=== PATIENT | male | born 1995 | race African-American/Black ===

== ENCOUNTER 2017-08-23 03:28 | Emergency (ER) | payer BC, MEDICAID ==
[~2017-08-23] VITALS: Ht 177.8 cm; Wt 72.0 kg
[2017-08-23 03:29] VITALS: BP 122/59; PULSE 98; RESP 16; TEMP 100.2; O2SAT 98
[2017-08-23] MEDS ORDERED: ZITHTAB PO (04:33)
--- NOTE | 2017-08-23 04:37 | PD ---
HPI Chief Complaint: ENT Complaint Time Seen by Provider: 04:19 Travel History International Travel<30 days: No Contact w/Intl Traveler<30days: No Traveled to known affect area: No History of Present Illness HPI 21-year-old black male presents to emergency Department with complaints of sore throat and fever. He states that is been sick now for 5 days. He has had progressive sore throat, headache, sore throat, congestion, and general malaise. He denies any ear pain, cough, shortness of breath, wheezing, nausea, vomiting, abdominal pain or urinary symptoms. Symptoms are moderate to severe. Worse with swallowing. No alleviating factors. PFSH Past Medical History Asthma: Yes Cardiovascular Problems: Yes Developmental Delay: No Diminished Hearing: No Gastrointestinal Disorders: No Genitourinary: No Musculoskeletal: No Neurologic: No Respiratory: No Immunizations Current: Yes Sickle Cell Disease: No Past Surgical History Cardiac Surgery: Yes ( ASD REPAIR; MITRAL VALVE INSUFFICIENCY) Other Surgery: Yes Social History Alcohol Use: No Tobacco Use: No Substance Use: No Allergies-Medications (Allergen,Severity, Reaction): Coded Allergies: amoxicillin (Unverified Allergy, Severe, Rash, 08/23/17) Reported Meds & Prescriptions Reported Meds & Active Scripts Active Zithromax Z-Rodolfo (Azithromycin) 250 Mg Dspk 250 Mg PO DIRECTED 500 MG (2 tabs) day 1, then 1 tab days 2-5. Review of Systems Except as stated in HPI: all other systems reviewed are Neg Physical Exam Narrative GENERAL: Well-developed, well-nourished in no acute distress. Nontoxic appearing. HEAD: Normocephalic, atraumatic. EYES: Pupils equal round and reactive. Extraocular motions intact. No scleral icterus. No injection or drainage. ENT: TMs clear without erythema. The external auditory canals clear. Nose: clear . Posterior pharynx is erythematous with edematous exudative tonsils. Mucous membranes are moist.. Uvula midline. Airway patent. NECK: Trachea midline.Supple, nontender, moves head freely. No central bony tenderness or spasm. CARDIOVASCULAR: Regular rate and rhythm without murmurs, gallops, or rubs. RESPIRATORY: Clear to auscultation. Breath sounds equal bilaterally. No wheezes , rales, or rhonchi. GASTROINTESTINAL: Abdomen soft, non-tender, nondistended. No hepato-splenomegaly , or palpable masses. No guarding. EXTREMITIES: No clubbing, cyanosis, or edema. No joint tenderness, effusion, or edema noted. BACK: Nontender without deformity or crepitance. No flank tenderness. Data Data Last Documented VS Vital Signs Date Time Temp Pulse Resp B/P (MAP) Pulse Ox O2 Delivery O2 Flow Rate FiO2 08/23/17 03:29 100.2 98 16 122/59 (80) 98 Room Air Orders Orders Azithromycin (Zithromax) (08/23/17 04:45) Dexamethasone (Decadron) (08/23/17 04:45) Dexamethasone (Decadron) (08/23/17 04:45) Ed Discharge Order (08/23/17 04:34) MDM Medical Decision Making Medical Screen Exam Complete: Yes Emergency Medical Condition: Yes Medical Record Reviewed: Yes Differential Diagnosis MDM: High Differential diagnoses: Strep throat, viral pharyngitis, mono, peritonsillar abscess, retropharyngeal abscess, Donnie's angina Narrative Course Patient is given Zithromax 500 mg by mouth and Decadron 10 mg by mouth. This is acute exudative tonsillitis Sepsis Criteria SIRS Criteria (2 or more): Temp > 100.9 or < 96.8, Heart rate over 90 Sepsis Criteria (SIRS+source): Infect source susp/known Criteria Outcome: Meets SIRS criteria Diagnosis Primary Impression: acute exudative tonsillitis Patient Instructions: General Instructions Additional Instructions: Rest. Force fluids. Saltwater gargles. Tylenol and Advil. Chloraseptic [place] Cepastat lozenge. Zithromax. Follow-up with a primary care doctor in one week. Return to the ER if any problems. Med/Other Pt SpecificInfo: Prescription(s) given Scripts Azithromycin (Zithromax Z-Rodolfo) 250 Mg Dspk 250 MG PO DIRECTED for Infection, #1 DSPK 0 Refills 500 MG (2 tabs) day 1, then 1 tab days 2-5. Prov: Kenroy Dorsey MD 08/23/17 Disposition: 01 DISCHARGE HOME Condition: Stable Jonatan Gloria Aug 23, 2017 04:37
[2017-08-23] MEDS ORDERED: DEXAMETHASONE 4 MG TAB PO ONE (04:45)
[2017-08-23] MEDS ORDERED: DEXAMETHASONE 6 MG TAB PO ONE (04:45)
[2017-08-23] MEDS ORDERED: AZITHROMYCIN 250 MG TAB PO ONE (04:45)
== END 2017-08-23 04:54 | disposition home or self-care (01) ==
LOC: NEPD 03:28
DX: J03.90 Acute tonsillitis, unspecified (principal); R51 Headache; R09.81 Nasal congestion; R53.81 Other malaise; J45.909 Unspecified asthma, uncomplicated
CPT/HCPCS: 99283; J8540